=== PATIENT | female | born 1985 | race Caucasian/White ===

== ENCOUNTER 2019-01-02 12:16 | Emergency (ER) | payer BC, SELFPAY ==
[2019-01-02 12:30] VITALS: BP 106/72; PULSE 73; RESP 18; TEMP 36.6; O2SAT 100
--- NOTE | 2019-01-02 14:17 | DI.RAD_ITS ---
EXAM: XR TIB/FIB LT INDICATION: puncture wound L upper leg, r/o fx/foreign body. COMPARISON: No exams were available for comparison TECHNIQUE: 2D digital imaging was performed. FINDINGS: Two views were obtained. No fracture seen. IMPRESSION:
[2019-01-02] MEDS: Acetaminophen 325 MG TAB 650 MG PO (14:22)
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
--- NOTE | 2019-01-02 14:39 | NUR.NOTE ---
Nursing Note: wound to left lino irrigated with 250mls of ns with a syringe and splash guard. steri strips applied to approximate edges and bezoin tincture used. pt tolerated well.
--- NOTE | 2019-01-02 15:30 | DI.VRAD_ITS ---
PROCEDURE INFORMATION: Exam: XR Left Tibia and Fibula Exam date and time: 01/02/2019 2:50 PM Clinical history: 33 years old, female; Injury or trauma; Fall; Initial encounter; Puncture; Lower leg; Left; Foreign body involvement not specified; Injury details: ? Fb TECHNIQUE: Imaging protocol: XR Left tibia and fibula. Views: 2 views. COMPARISON: No relevant prior studies available. FINDINGS: Bones/joints: There is no evidence of acute fracture.There is no evidence of malalignment or dislocation. Soft tissues: No foreign body identified IMPRESSION: There is no evidence of acute fracture.There is no evidence of malalignment or dislocation. No foreign body identified Dictated and Authenticated by: Mariah Bolivar MD. Ordering:MEENA Trevino MD
== END 2019-01-02 16:23 | disposition home or self-care (01) ==
PROVIDERS: Emergency Provider Physician Assistant
DX: S81.832A Puncture wound without foreign body, left lower leg, initial encounter (principal); S80.812A Abrasion, left lower leg, initial encounter; V17.0XXA Pedal cycle driver injured in collision with fixed or stationary object in nontraffic accident, initial encounter
CPT/HCPCS: 90471; 99283; 73590